=== PATIENT | male | born 1965 | race Caucasian/White ===

== ENCOUNTER 2018-04-17 13:56 | Emergency (ER) | payer SELFPAY ==
[~2018-04-17] VITALS: Ht 170.2 cm; Wt 61.0 kg
[2018-04-17] MEDS ORDERED: TETANUS, DIPHTHERIA, PERTUSSIS VAC/PF 0.5ML (>7YR OLD) IM ONE (17:30)
[2018-04-17] MEDS ORDERED: BACITRACIN ZINC OINT UDPKT TOP ONE (17:30)
[2018-04-17 18:40] VITALS: BP 127/74
== END 2018-04-17 19:06 | disposition home or self-care (01) ==
LOC: ER 13:56
DX: T25.021A Burn of unspecified degree of right foot, initial encounter (principal); L03.115 Cellulitis of right lower limb; E11.9 Type 2 diabetes mellitus without complications; F17.200 Nicotine dependence, unspecified, uncomplicated; X12.XXXA Contact with other hot fluids, initial encounter; Y93.89 Activity, other specified; Y92.488 Other paved roadways as the place of occurrence of the external cause
CPT/HCPCS: 16020; 90471; 90715; 99284

== ENCOUNTER 2018-04-19 13:23 | Emergency (ER) | payer SELFPAY ==
[~2018-04-19] VITALS: Ht 175.3 cm; Wt 58.8 kg
[2018-04-19] MEDS ORDERED: BACITRACIN ZINC OINT UDPKT TOP ONE (15:00)
[2018-04-19 15:38] VITALS: BP 115/76
== END 2018-04-19 15:41 | disposition home or self-care (01) ==
LOC: ER 13:23
DX: T25.221A Burn of second degree of right foot, initial encounter (principal); T25.232A Burn of second degree of left toe(s) (nail), initial encounter; E11.9 Type 2 diabetes mellitus without complications; X16.XXXA Contact with hot heating appliances, radiators and pipes, initial encounter; Y93.89 Activity, other specified; Y92.89 Other specified places as the place of occurrence of the external cause; Y99.8 Other external cause status
CPT/HCPCS: 16020; 99284